=== PATIENT | female | born 1980 | race Two or more races ===

== ENCOUNTER 2025-08-21 06:00 | Day surgery (SDC) | payer OTHER ==
[2025-08-14 13:22] LABS: INR 1.04
[2025-08-14 14:20] VITALS: BP 94/64
[~2025-08-21] VITALS: Ht 157.5 cm; Wt 48.1 kg
[~2025-08-21 06:00] MED LIST: EMGALITY P120 MG/1 M; FROVA2.5 MG
[2025-08-21] MEDS ORDERED: POVIDONE-IODINE 118 ML BOTT TOP ONE (06:40)
== END 2025-08-21 11:00 | disposition home or self-care (01) ==
LOC: CIR.AMB 06:00
PROVIDERS: ATTEND Obstetrics & Gynecology Maternal & Fetal Medicine
DX: N84.0 Polyp of corpus uteri (principal)